=== PATIENT | male | born 1995 | race Caucasian/White ===

== ENCOUNTER 2020-07-01 05:38 | Emergency (ER) | payer BC ==
[~2020-07-01] VITALS: Ht 180.3 cm; Wt 68.9 kg
--- NOTE | 2020-07-01 05:40 | PHYS DOC ---
General Adult EDM: Chief Complaint: ABDOMINAL PAIN HPI: HPI: ".. This all started about 11 last night.. it felt like someone stabbed me in the back..and it went into my Rt. lower abdomen and into my Rt nut area..".." I almost felt constipated.. tried to have a stool.. but it did not help..." .." Nauseated...." Patient is a 25 year old male who presents with above hx and complaints of Rt. flank and Rt lower abdomen pain. The pain with acute onset and radiated into the right testicle. Patient denies any penile discharge or worries about STD. Does have unprotected sex. Patient has only one sexual partner. No history of STDs. No history of trauma. 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 No history of fever or chills. No history of previous kidney stones. There is a family history of kidney stones on mother's side of family. Pt. follows with Dr. Gonzalez. No history of travel or severe ill con tacts. No history of bad food intake. Did have an normal stool today. (KENNETH QUIÑONEZ MD) Review of Systems: Review of Systems: Constitutional: Denies fever or chills Eyes: Denies change in visual acuity HENT: Denies nasal congestion or sore throat Respiratory: Denies cough or shortness of breath Cardiovascular: Denies chest pain or edema GI: Complains of right flank and right lower abdominal pain, nausea,. Denies vomiting, bloody stools or diarrhea : Denies dysuria Musculoskeletal: Denies back pain or joint pain Integument: Denies rash Neurologic: Denies headache, focal weakness or sensory changes Endocrine: Denies polyuria or polydipsia Lymphatic: Denies swollen glands Psychiatric: Denies depression or anxiety (KENNETH QUIÑONEZ MD) Family History: Family History: Renal stones on mother's side of family (KENNETH QUIÑONEZ MD) Current Medications: Current Meds: See nursing for home meds (KENNETH QUIÑONEZ MD) Allergies: Allergies: No known drug allergies (KENNETH QUIÑONEZ MD) Physical Exam: PE: Constitutional: Well developed, well nourished,inacute distress, non-toxic appearance. [] HENT: Normocephalic, atraumatic, bilateral external ears normal, oropharynx moist, no oral exudates, nose normal. [] Eyes: PERRLA, EOMI, conjunctiva normal, no discharge. [] Neck: Normal range of motion, no tenderness, supple, no stridor. [] Cardiovascular:Heart rate regular rhythm, no murmur [] Lungs & Thorax: Bilateral breath sounds equal apex on auscultation [] Abdomen: Bowel sounds decreased, soft, right lower abdomen tenderness, no masses, no pulsatile masses. Hydrocele on right testicle. Circumcised male. No penile discharge. Has rebound pain to right lower abdomen. Does have a superficial scar right upper abdomen which was from a old injury. Skin: Warm, dry, no erythema, no rash. [] Back: No tenderness, right CVA tenderness. [] Percussion on rt.causes radiation into rt.lower abdomen. Extremities: No tenderness, no cyanosis, no clubbing, ROM intact, no edema. [] Psoas sign on right. Patient unable to jump up and down without abdomen pain Neurologic: Alert and oriented X 3, normal motor function, normal sensory function, no focal deficits noted. [] Psychologic: Affect anxious, judgement normal, mood normal. [] (KENNETH QUIÑONEZ MD) EKG: EKG: [] (KENNETH QUIÑONEZ MD) Radiology/Procedures: Radiology/Procedures: [place] [address] IMAGING REPORT Signed PATIENT: NICHOLE CLARK ACCOUNT: [id number] : 1995 LOCATION: ER AGE: 25 SEX: M EXAM STATUS: REG ER ORD. PHYSICIAN: KENNETH QUIÑONEZ MD REASON: abdomen pain PROCEDURE: ACUTE ABDOMEN SERIES Acute Abdominal Series: 07/01/2020 5:59 AM Reason for study: Abdominal pain Comparison studies: None. Technique: Frontal view of the chest was obtained along with supine and upright views of the abdomen. Findings: Nonobstructive bowel gas pattern. No air fluid levels or free air. Moderate stool noted in the right colon. The lungs are clear without acute consolidative opacity. No pleural effusion or pneumothorax. The cardiac and mediastinal contours are normal. Visualized osseous structures are intact. IMPRESSION: 1. Nonobstructed bowel gas pattern. 2. No acute cardiopulmonary findings. Electronically signed by: Rashid Florence MD (07/01/2020 6:34 AM) [facility] DICTATED AND SIGNED BY: RASHID FLORENCE MD DATE: 07/01/20 0633 CC: KENNETH QUIÑONEZ MD; YOVANA HORTON MD; GILLES GONZALEZ MD ~MTH0 [address] pending at shift change [] (KENNETH QUIÑONEZ MD) Heart Score: Risk Factors: Risk Factors: DM, Current or recent (<one month) smoker, HTN, HLP, family history of CAD, obesity. Risk Scores: Score 0 - 3: 2.5% MACE over next 6 weeks - Discharge Home Score 4 - 6: 20.3% MACE over next 6 weeks - Admit for Clinical Observation Score 7 - 10: 72.7% MACE over next 6 weeks - Early Invasive Strategies (KENNETH QUIÑONEZ MD) Course & Med Decision Making: Course & Med Decision Making Pertinent Labs and Imaging studies reviewed. (See chart for details) Xrays and Labs pending at shift change. Patient endorsed to Dr. Concepcion at shift change, she will make disposition of pt. Impression: 1. Abdomen Pain [] (KENNETH QUIÑONEZ MD) Course & Med Decision Making Assumed care of patient at check out from Dr. Quiñonez. At check out, lab work and CT was pending and patient is stable. At this time, work-up is unremarkable other than for mild constipation. I discussed with patient doing [id number] laxatives and ibuprofen for pain. He is [id number] my exam. Patient's test results and vitals while in the ED were fully reviewed and discussed with the patient. Patient is stable and at this time does not need admission to the hospital. We have discussed strict return precautions and the importance of following up with their Primary Care Physician. Patient stated understanding and was given an opportunity to ask any questions. Patient is in agreement with plan. (YOVANA HORTON MD) Dragon Disclaimer: Dragon Disclaimer: This electronic medical record was generated, in whole or in part, using a voice recognition dictation system. (KENNETH QUIÑONEZ MD) Departure Departure: Impression: Primary Impression: Abdominal pain Additional Impression: Constipation Disposition: 01 DC HOME SELF CARE/HOMELESS Condition: STABLE Referrals: GILLES GONZALEZ MD (PCP) Patient Instructions: Abdominal Pain, Constipation, Adult Dragon Disclaimer This chart was dictated in whole or in part using Voice Recognition software in a busy, high-work load, and often noisy Emergency Department environment. It may contain unintended and wholly unrecognized errors or omissions. (KENNETH QUIÑONEZ MD) Dragon Disclaimer This chart was dictated in whole or in part using Voice Recognition software in a busy, high-work load, and often noisy Emergency Department environment. It may contain unintended and wholly unrecognized errors or omissions. (KENNETH QUIÑONEZ MD) KENNETH QUIÑONEZ MD Jul 01, 2020 05:40 YOVANA HORTON MD Jul 01, 2020 09:33
[2020-07-01 05:49] VITALS: BP 139/75
[2020-07-01] MEDS ORDERED: IV RINGERS SOLUTION,LACTATED 1,000 ML IV SCH (06:00)
[2020-07-01] MEDS ORDERED: KETOROLAC 30 MG/ML VIAL. IVP ONE (06:00)
[2020-07-01] MEDS ORDERED: ONDANSETRON PF 4 MG/2 ML VIAL. IVP ONE (06:00)
[2020-07-01] MEDS ORDERED: FAMOTIDINE 20 MG/2 ML VIAL IVP ONE (06:00)
--- NOTE | 2020-07-01 06:36 | RAD ---
Acute Abdominal Series: 07/01/2020 5:59 AM Reason for study: Abdominal pain Comparison studies: None. Technique: Frontal view of the chest was obtained along with supine and upright views of the abdomen. Findings: Nonobstructive bowel gas pattern. No air fluid levels or free air. Moderate stool noted in the right colon. The lungs are clear without acute consolidative opacity. No pleural effusion or pneumothorax. The car diac and mediastinal contours are normal. Visualized osseous structures are intact. IMPRESSION: 1. Nonobstructed bowel gas pattern. 2. No acute cardiopulmonary findings. Electronically signed by: Radha Hampton MD (07/01/2020 6:34 AM) [facility]
[2020-07-01 06:37] LABS: BASO % 0 % (0-3); EOS # 0.1 x10^3/uL (0.0-0.7); EOS % 1 % (0-3); HEMATOCRIT 42.7 % (39.0-53.0); HEMOGLOBIN 14.7 g/dL (13.0-17.5); LYMPH # 1.9 x10^3/uL (1.0-4.8); LYMPH % 18 % (24-48); MEAN CORPUSCULAR HEMOGLOBIN 32 pg (25-35); MEAN CORPUSCULAR HGB CONC 34 g/dL (31-37); MEAN CORPUSCULAR VOLUME 93 fL (79-100); MONO # 0.7 x10^3/uL (0.0-1.1); MONO % 7 % (0-9); NEUT # 7.9 x10^3uL (1.8-7.7); NEUT % 74 % (31-73); PLATELET COUNT 182 x10^3/uL (140-400); RED BLOOD COUNT 4.57 x10^6/uL (4.30-5.70); RED CELL DISTRIBUTION WIDTH 12.3 % (11.5-14.5); WHITE BLOOD COUNT 10.7 x10^3/uL (4.0-11.0)
[2020-07-01 06:50] LABS: ALBUMIN 4.2 g/dL (3.4-5.0); CALCIUM 8.3 mg/dL (8.5-10.1); CREATININE 0.9 mg/dL (0.7-1.3); DIRECT BILIRUBIN 0.2 mg/dL (0.0-0.2); GFR 102.8; TOTAL BILIRUBIN 0.8 mg/dL (0.2-1.0); TOTAL PROTEIN 7.2 g/dL (6.4-8.2)
[2020-07-01 07:10] LABS: POTASSIUM 3.9 mmol/L (3.5-5.1)
[2020-07-01] MEDS ORDERED: MORPHINE SULFATE 2 MG/ML DISP.SYRIN. ONE (07:18)
[2020-07-01] MEDS ORDERED: MORPHINE SULFATE 2 MG/ML DISP.SYRIN. IV ONE ×2 (07:45→08:00)
--- NOTE | 2020-07-01 08:56 | RAD ---
CT ABDOMEN+PELVIS WO History: Reason: renal colic, Rt. flank pain radiates into Rt. groin and testicle / Spl. Instruction s: / History: Technique: Noncontrast examination of the abdomen and pelvis. Coronal and sagittal reconstructions we re performed. Exposure: One or more of the following individualized dose reduction techniques were utilized for thi s examination: 1. Automated exposure control 2. Adjustment of the mA and/or kV according to patient size 3. Use of iterative reconstruction technique. Comparison: None Findings: Lower chest: No consolidation or pleural effusion. Abdomen and pelvis: The liver, spleen, adrenal glands, pancreas and gallbladder are unremarkable. No biliary ductal dilatation. Unremarkable noncontrast appearance of the kidneys. No hydronephrosis. No renal calculi. No ureteral or urinary bladder calculus. Normal appendix. No evidence of bowel obstruction. Fecalization of distal small bowel loops. No signi ficant wall thickening. Mild stool throughout the colon. No pathologic lymphadenopathy. No ascites. Bones: No pathologic osseous lesions. Impression: 1. No acute abdominal or pelvic pathology. No obstructing urolithiasis. Electronically signed by: Emile Reeder DO (07/01/2020 8:54 AM) [facility]
[2020-07-01 09:34] LABS: AMORPHOUS SEDIMENT,UR PRESENT /HPF; BACTERIA,URINE 0 /HPF (0-FEW); BILIRUBIN,URINE NEG (NEG); CLARITY,URINE TURBID; COLOR,URINE YELLOW; GLUCOSE,URINE NEG (NEG); NITRITE,URINE NEG (NEG); RBC,URINE 0 /HPF (0-2); SQUAMOUS EPITHELIAL CELL,UR OCC /LPF; UROBILINOGEN,URINE 0.2 mg/dL (0.2 mg/dL); WBC,URINE 0 /HPF (0-4)
[2020-07-01 09:38] LABS: BARBITURATES NEG (NEG); BENZODIAZEPINES NEG (NEG); CANNABINOIDS POS (NEG); COCAINE NEG (NEG); METHADONE NEG (NEG); OPIATES POS (NEG); PHENCYCLIDINE NEG (NEG)
[2020-07-01 09:46] LABS: AMPHETAMINE/METHAMPHETAMINE NEG (NEG)
== END 2020-07-01 09:38 | disposition home or self-care (01) ==
LOC: ER 05:38
DX: K59.00 Constipation, unspecified (principal)
CPT/HCPCS: 36415; 74022; 74176; 80048; 80076; 80307; 81001; 82150; 82550; 83690; 84484; 85025; 85610; 85730; 96361; 96374; 96375; 99285; J1885; J2270; J2405; J3490; J7120; 96365